=== PATIENT | female | born 1995 | race Caucasian/White ===

== ENCOUNTER 2017-05-02 07:49 | Emergency (ER) | payer MEDICAID, MEDICARE ==
--- NOTE | 2017-05-02 08:51 | EDM.PDOC ---
ED HPI GENERAL MEDICAL PROBLEM - General Chief Complaint: Skin Complaint Stated Complaint: RT FOOT ISSUES Time Seen by Provider: 05/02/17 08:29 Source of Information: Reports: Patient, Family, RN Notes Reviewed History Limitations: Reports: No Limitations - History of Present Illness INITIAL COMMENTS - FREE TEXT/NARRATIVE: 21-year-old female presents to the emergency department today with concern of wound infection, she had bunion surgery on her right foot about 6 months prior with a difficult course of MRSA infection. She states over the last couple days she's noticed some redness and swelling over her surgical area she has had some thick. And drainage as well is not feeling well low-grade fevers. She is visiting the area right;foot Pain Score (Numeric/FACES): 5 - Related Data Allergies Allergy/AdvReac Type Severity Reaction Status Date / Time amoxicillin [From Augmentin] Allergy Vomiting Verified 05/02/17 08:21 clavulanic acid Allergy Vomiting Verified 05/02/17 08:21 [From Augmentin] ziprasidone [From Geodon] Allergy Disorientat Verified 05/02/17 08:21 ion Home Meds: Home Meds ARIPiprazole [Abilify] 10 mg PO BID 05/02/17 [History] Docusate Sodium [Stool Softener] 50 mg PO BID 05/02/17 [History] Fluticasone Propionate [Flonase] 2 spray WERO DAILY 05/02/17 [History] Polyethylene Glycol 3350 [MiraLAX] 1 mg PO DAILY 05/02/17 [History] Sertraline [Zoloft] 50 mg PO DAILY 05/02/17 [History] Past Medical History HEENT History: Reports: Otitis Media Psychiatric History: Reports: ADHD, Anxiety, Bipolar, Depression, OCD, Psych Hospitalization(s) - Past Surgical History HEENT Surgical History: Reports: Adenoidectomy, Tonsillectomy Other Musculoskeletal Surgeries/Procedures:: bunion jurgery Social & Family History - Tobacco Use Smoking Status *Q: Never Smoker - Caffeine Use Caffeine Use: Reports: None - Recreational Drug Use Recreational Drug Use: No ED ROS GENERAL - Review of Systems Review Of Systems: See Below Constitutional: Reports: Fever (Low-grade fevers) Respiratory: Reports: No Symptoms Cardiovascular: Reports: No Symptoms GI/Abdominal: Reports: No Symptoms : Reports: No Symptoms Skin: Reports: Pallor, Wound, Change in Color ED EXAM, SKIN/RASH Exam: See Below Text/Narrative:: examination of the right foot pedal pulse is +2 to do appreciate a red warm area over the first metatarsal joint it is tender to the touch I was able to express a small amount of fluid thick purulent total erythematous areas approximately 3 cm x 10 cm Exam Limited By: No Limitations General Appearance: Alert, WD/WN, No Apparent Distress Respiratory/Chest: No Respiratory Distress ED SKIN PROCEDURES - I&D Site: Right foot Skin Prep: Isopropyl Alcohol (Alcohol) Local Anesthesia: Lidocaine: 1% with EPI Local Anesthetic Volume: 2cc Area Incised With: 11 Blade Drainage: Purulent, Small Amount Probed to Break Up Loculations: Yes Packed With: 1/4 in. Iodoform Sterile Dressing: Adhesive Dressing Complications: No Course - Vital Signs Last Recorded V/S: Last Vital Signs Temp 99.3 F 05/02/17 08:18 Pulse 70 05/02/17 08:18 Resp 18 05/02/17 08:18 BP 142/87 H 05/02/17 08:18 Pulse Ox 100 05/02/17 08:18 - Orders/Labs/Meds Orders: Active Orders 24 hr Category Date Time Status CULTURE WOUND + SMEAR [RM] Stat Lab 05/02/17 08:38 Ordered Departure - Departure Time of Disposition: 09:11 Disposition: Home, Self-Care 01 Condition: Good Clinical Impression: Abscess Cellulitis Qualifiers: Site of cellulitis: extremity Site of cellulitis of extremity: lower extremity Laterality: right Qualified Code(s): L03.115 - Cellulitis of right lower limb - Discharge Information Referrals: PCP,None [Primary Care Provider] - Forms: ED Department Discharge Additional Instructions: Take full course of antibiotics, please follow-up with your human resources hr generalist on Wednesday , call return to the emergency department with worsening of symptoms, use Tylenol or Motrin as needed for pain control - My Orders Last 24 Hours: My Active Orders 05/02/17 08:38 CULTURE WOUND + SMEAR [RM] Stat - Assessment/Plan Last 24 Hours: My Active Orders 05/02/17 08:38 CULTURE WOUND + SMEAR [RM] Stat Plan: Assessment Acuity = acute Site and laterality = abscess right foot Etiology = probable underlying bacterial cause concern for MRSA Manifestations = pain Location of injury = Home Lab values = wound cultures pending Plan I have her do dressing changes every 48 hours with repacking contact her infectious disease doctor on Wednesday as well as her human resources hr generalist. Him and place her on Bactrim DS 1 tab by mouth twice a day when necessary total #10 days This note was dictated using [employer] voice recognition software please call with any questions on syntax or andrew.
== END 2017-05-02 09:29 | disposition home or self-care (01) ==
LOC: JP.ED 07:49
DX: L02.611 Cutaneous abscess of right foot (principal); L03.115 Cellulitis of right lower limb; F31.9 Bipolar disorder, unspecified; Z88.1 Allergy status to other antibiotic agents; Z79.899 Other long term (current) drug therapy; Z88.8 Allergy status to other drugs, medicaments and biological substances; Z86.14 Personal history of Methicillin resistant Staphylococcus aureus infection
CPT/HCPCS: 10060; 10061; 87070; 87077; 87186; 87205; 99283-25